=== PATIENT | female | born 1975 | race Two or more races ===

== ENCOUNTER 2023-11-10 15:45 | Outpatient (CLI) | payer OTHER ==
[2023-11-10 20:53] LABS: THYROID STIMULATING HORMONE 10.38 uIU/mL (0.34-5.60)
== END 2023-11-10 16:00 | disposition home or self-care (01) ==
LOC: LAB.N 15:45
PROVIDERS: ATTEND Physician Assistant Medical
DX: N30.00 Acute cystitis without hematuria (principal); Z86.39 Personal history of other endocrine, nutritional and metabolic disease
CPT/HCPCS: 36415; 84439; 84443; 87086